=== PATIENT | female | born 2000 | race Caucasian/White ===

== ENCOUNTER 2023-02-15 09:12 | Outpatient (AMB) | payer OTHER, SELFPAY ==
[2023-02-15 09:17] VITALS: BP 124/68; PULSE 60; RESP 12; TEMP 36.3; O2SAT 99; BMI 30.8
--- NOTE | 2023-02-15 09:17 | AM.OFFWIN_ITS ---
Intake Vital Signs 02/15/23 09:17 Height 4 ft 9 in Weight 142 lb 4 oz BMI 30.8 BP 124/68 Blood Pressure Location Rt brachial Position Sitting Respiration 12 Pulse 60 Pulse Source Pulse Oximeter Temp 97.3 F Temp Source Temporal Artery Scan Pulse Oximetry (%) 99 Oxygen Delivery Method Room Air Intake Visit Reasons: ear pain/itchy ears Intake Note: Patient states that both ears have been itchy and feel dry for about 2 weeks. Patient states that her right ear sometimes has crust and has recently been leaking clear fluid. Patient states the fluid doesn't have a smell. Patient states that ear pain is also in right ear and the pain recently started 2 days ago. Patient states that it is very uncomfortable especially first thing in morning and at night right before bed. 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 She also reports itchiness in both ears for the past 2 weeks. She states she took 2 doses of ibuprofen yesterday. She denies headache, fever, chills, body aches, fatigue, or weakness. She states she is not a swimmer. FORMERLY [facility], 1928–1983 Social History Patient Tobacco Use Status: Current everyday Tobacco user (Vaping) Review of Systems Const Details: Const Denies chills, Denies fatigue, Denies fever(s), Denies headache(s) and Denies weakness ENT Reports as per HPI Resp Denies cough, Denies dyspnea, Denies wheezing and Denies other (shortness of breath) Cardio Denies chest pain, Denies lightheadedness, Denies dyspnea and Denies other (palpitations) Neuro Denies dizziness, Denies headache(s), Denies numbness, Denies tingling and Denies weakness Psych Denies anxiety, Denies depression, Denies memory?loss Endo Denies fatigue Aller/Immun Denies wheezing Physical Exam Vital Signs: Last Vital Signs Temp 97.3 F 02/15/23 09:17 Pulse 60 02/15/23 09:17 Resp 12 02/15/23 09:17 BP 124/68 02/15/23 09:17 Pulse Ox 99 02/15/23 09:17 Oxygen Delivery Method Room Air 02/15/23 09:17 BMI result Body Mass Index 30.8 Const Other: Const General: well developed; No acute distress Nutritional Appearance: well nourished Orientation/consciousness: patient oriented x3 HEENT Head is normocephalic Bilateral ear canal and TM are normal Nasal turbinates and oropharynx are pink and moist Sinuses are nontender with palpation No auricular or cervical lymphadenopathy Pain to palpation to the right maxilla adjacent the tragus, and back of the head next to the right earlobe Eyes General: appearance normal, both eyes and all related structures Pupils: Equal, round and reactive pupils present EOM: EOMs intact bilaterally Resp Effort & Inspection: normal respiratory effort Auscultation: clear to auscultation bilaterally Cardio Rate: regular rate Rhythm: regular rhythm Heart sounds: S1 normal heart sound present, S2 normal heart sound present, no gallops, no murmurs and no rubs Bruits: no abdominal aortic bruits and no carotid bruits Neuro General: patient oriented x3 and gait normal, no focal neuro deficit Cranial nerves: Yes Equal, round and reactive pupils present Psych Affect: normal affect Assessment & Plan Assessment & Plan (1) Right ear pain: Code(s): H92.01 - Otalgia, right ear Plan: Normal ear canal and TM bilaterally Pain to palpation to the right maxilla adjacent the tragus, and back of the head next to the right earlobe No signs of bacterial infection Likely inflammation around the outside of the right ear Itchiness in both ears may be attributed to allergies May take ibuprofen 600 mg every 6-8 hours as needed for pain or discomfort May also take an antihistamine such as Zyrtec or Claritin daily Follow-up with worsening or new symptoms Verbalized understanding and agreed with treatment plan. Coding Level of Care Code New Pt Level 2 (65152) Diagnoses Right ear pain H92.01
== END 2023-02-15 12:24 | disposition home or self-care (01) ==
PROVIDERS: PCP Pediatrics; Visit Provider Nurse Practitioner Family
DX: H92.01 Otalgia, right ear (principal)
CPT/HCPCS: 99202